=== PATIENT | female | born 1975 | race Caucasian/White ===

== ENCOUNTER 2017-04-17 12:48 | Emergency (ER) | payer BC ==
--- NOTE | 2017-04-17 14:08 | ERNOTE ---
Abdominal HPI - Narrative Date of Service: 04/17/17 - General Chief Complaint: Abdominal Pain Time Seen by Provider: 04/17/17 13:51 Source: patient Exam Limitations: no limitations - Immun/Allergies/Home Medications Immunizatons: IMMUNIZATION HX Immunizations Up to Date Yes History of Influenza Vaccine No Hx Pneumococcal Vaccination No Allergies/Adverse Reactions: Allergies latex Allergy (Unverified 10/04/16 09:30) Home Medications: HOME MEDICATIONS Aspirin 10/04/16 [Last Taken Unknown] Colace 10/04/16 [Last Taken Unknown] Metformin HCl 10/04/16 [Last Taken Unknown] Multivitamin 10/04/16 [Last Taken Unknown] Vitamin B12 10/04/16 [Last Taken Unknown] Vitamin D 10/04/16 [Last Taken Unknown] - History of Present Illness Narrative: Pt. comes in with c/o periumbilical pain that radiates to her upper abdomen fro 6 hours. Pt. denies eating breakfast this morning and states that the pain was not changed with movment palpation, eating or bowel movement. Pt. states that her last BM was this morning and was normal for her. Pt. states that she has had episodes like this in the past but not as severe and the pain is usually resolved after a couple of hours. Pt. denies any prehospital treatment. Review of Systems - Review of Systems Constitutional: Present: no symptoms reported. Absent: recent illness, fever, chills, weakness, fatigue, malaise EYE: Present: no symptoms reported. Absent: eye pain, eye discharge, double vision ENT: Present: no symptoms reported. Absent: ear discharge, nose pain, nose congestion, nasal drainage, sore throat Respiratory: Present: no symptoms reported. Absent: shortness of breath, cough , wheezing Cardiology: Present: no symptoms reported. Absent: chest pain, palpitations, edema Gastrointestinal/Abdominal: Present: abdominal pain. Absent: nausea, vomiting, diarrhea, constipation, eating less, drinking less Genitourinary: Present: no symptoms reported. Absent: frequency, pain, decreased urinary output Musculoskeletal: Present: no symptoms reported. Absent: back pain, joint pain Skin: Present: no symptoms reported Neurological: Present: no symptoms reported. Absent: headache, dizziness/light- headedness, numbness, tingling Endocrine: Present: no symptoms reported Hematologic/Lymphatic: Present: no symptoms reported All Other Systems: All systems neg except as marked - Patient's Past Medical History Patient History - Medical: Other - gall bladder attack Patient History - Cardiac/Respiratory: No pertinent hx Patient History - Cancer: No Hx of Cancer Patient History - Surgical Procedures: Tubal Ligation Patient History - Other: None - Social History Living Situations: home Psych History: No pertinent hx Smoking Status: Never smoker Alcohol Use: none Drug Use: none - Immunizations Immunizations Up to Date: Yes Hx Pneumococcal Vaccination: No History of Influenza Vaccine: No Physical Exam - Physical Exam General Appearance: Present: wd/wn, alert, no apparent distress Head Exam: Present: normal inspection, no evidence of injury Eye Exam: Normal inspection: bilateral, PERRL: bilateral, EOMI: bilateral Ears, Nose, Throat: Present: normal ENT inspection, normal pharynx Neck: Present: normal inspection, nontender. Absent: lymphadenopathy (R), lymphadenopathy (L) Respiratory: Present: no respiratory distress, normal breath sounds, no accessory muscle use, chest nontender, lungs clear Cardiovascular/Chest: Present: regular rate, rhythm, no murmur, normal peripheral pulses Gastrointestinal/Abdominal: Present: normal bowel sounds, nondistended, soft, no organomegaly, tenderness - BLQ Back Exam: Present: normal inspection, normal range of motion, no CVA tenderness , no vertebral tenderness Extremity Exam: Present: normal inspection, non-tender, normal range of motion, no edema Neurological Exam: Present: alert, oriented, normal mood/affect, no motor/ sensory deficits Skin Exam: Present: normal color, warm/dry ED Progress - Date and Time Seen: Date and Time: 04/17/17 15:13 As pt. has no rebound tenderness feel that this is not likely appendicitis and also do not feel that pt. has obstructing gallstone due to lab results. - Results and Orders Patient's Lab Results:: I have reviewed the patient's lab results. - Vital Signs Patient's Vital Signs:: I have reviewed the patient's vital signs. Vital Signs: Vital Signs 04/17/17 13:33 Temperature 36.4 C L Pulse Rate 53 L Respiratory 16 Rate Blood Pressure 116/70 O2 Sat by Pulse 100 Oximetry - X-Ray X-Ray #1 X-Ray: abdomen Interpretation: Reviewed by me X-ray Comments: FINDINGS: Abdomen Flat W/ Upright *: No subdiaphragmatic free air. Patient has multiple surgical clips overlying the left upper quadrant of the abdomen, below the left hemidiaphragm suggestive of previous gastric surgery. Correlate clinically. A few air-fluid levels are present within nondilated small and large bowel segments, centered in the upper and right lower quadrant of the abdomen. No abnormal dilation of large or small bowel. There is a potential small faint 2 mm calcification projecting in between the right fourth and fifth transverse processes. This could potentially represent either a small phlebolith within the retroperitoneum, versus a possible ureteral calcification, versus less likely an appendicolith. Correlate clinically for renal colic or right lower quadrant abdominal pain/appendicitis. Osseous structures are intact. IMPRESSION: 1. Abnormal but nonspecific bowel gas pattern. Air-fluid levels within small and large bowel segments in the upper and right lower quadrant of the abdomen. Correlate clinically for enteritis or colitis. Also consider localized ileus due to adjacent inflammatory process. 2. 2 mm calcification in the right side of the abdomen as discussed above. Could represent vascular calcification/phlebolith, versus possible right-sided ureteral calcification. Less likely but possible is an appendicolith. Correlate clinically. Electronically signed by Aida Madison M.D.. Aida Madison MD - Progress/Reassessment Chief Complaint: Abdominal Pain Departure Clinical Impression: Colitis, Gastroenteritis - Departure Disposition: Home self-care Condition: Good Instructions: Viral Gastroenteritis, Adult, [id number], Colitis Additional Instructions: Please follow up with primary provider in 2-3 days for further investigation if not improved. Referrals: Alyx Eller DO [Primary Care Provider] -
[2017-04-17 14:17] LABS: Hematocrit 43.1 % (37.0-47.0); Hemoglobin 14.2 gm/dL (12.5-16.0); Mean Cell Volume 89.8 fl (78-100); Mean Corpuscular Hemoglobin 29.6 pg (27-31); Mean Corpuscular Hgb Conc 32.9 g/dl (32-36); Mean Platelet Volume 10.8 fl (6.0-9.5); Neutrophil # 5.4 K/mm3 (1.3-6.0); Neutrophil % 64.3 % (42-75.0); Platelet Count 196 K/mm3 (150-450); Red Cell Distribution Width 12.3 % (11.5-14.0); White Blood Count 8.3 K/mm3 (4.0-10.5)
[2017-04-17 14:30] LABS: Anion Gap 11.6 mmol/L (6.8-13.8); BUN/Creatinine Ratio 30.1 (9.0-21.6); Bilirubin, Total 0.3 mg/dL (0.0-1.1); Ca. Corrected For Albumin 8.3 mg/dL (8.4-10.2); Calcium * 8.6 mg/dL (7.9-10.9); Potassium 3.6 mmol/L (3.4-4.6); Total Protein 7.8 gm/dL (6.2-8.2)
[2017-04-17 14:45] LABS: Urine Bilirubin Negative (NEGATIVE); Urine Blood Negative /ul (NEGATIVE); Urine Ketone Negative (NEGATIVE); Urine Nitrite Negative (NEGATIVE); Urine Protein Negative (NEGATIVE); Urine Specific Gravity >=1.030 SP.GR. (1.005-1.010); Urine Urobilinogen Normal (NORMAL)
[2017-04-17 15:06] LABS: Urine Appearance Slightly Cloudy; Urine Bacteria 1+; Urine Color Yellow; Urine RBC None Seen /hpf (0-5); Urine WBC None Seen /hpf (0-5)
[2017-04-17 16:27] VITALS: BP 106/64
== END 2017-04-17 15:20 | disposition home or self-care (01) ==
LOC: ER 12:48
DX: K52.9 Noninfective gastroenteritis and colitis, unspecified (principal)